=== PATIENT | male | born 1990 | race Caucasian/White ===

== ENCOUNTER → 2024-06-28 | Outpatient (CLI) | payer OTHER ==
[~2024-06-28] MED LIST: BARIUM SULFATE 700 MG TABLET (E-Z-DISK) As Ordered ONE; E-Z-PAQUE 96% w/w SUSP 176GM BTL As Ordered ONE; VARIBAR NECTAR 40% w/v 240ML SUSP BTL As Ordered ONE; VARIBAR PUDDING 40% w/v 230ML TUBE As Ordered ONE
== END ==
LOC: M RAD 12:27
PROVIDERS: ATTEND Internal Medicine
DX: R13.19 Other dysphagia (principal)

== ENCOUNTER 2024-11-22 09:24 | Inpatient (IN) | payer OTHER ==
[~2024-11-22] VITALS: Ht 180.3 cm; Wt 95.0 kg
[2024-11-22] MEDS: PANTOPRAZOLE 40MG TAB PO SCH (09:00)
[2024-11-22 10:06] LABS: HEMATOCRIT 43.6 % (42.0-52.0); HEMOGLOBIN 14.7 g/dl (13.5-17.5); MEAN CORPUSCULAR HEMOGLOBIN 30.9 pg (27.0-33.0); MEAN CORPUSCULAR HGB CONC 33.7 g/dl (32.0-36.5); MEAN CORPUSCULAR VOLUME 91.8 fl (80.0-96.0); PLATELET COUNT, AUTOMATED 270 10^3/uL (150-450); RED BLOOD COUNT 4.75 10^6/uL (4.30-6.10); WHITE BLOOD COUNT 10.8 10^3/uL (4.0-10.0)
[2024-11-22 10:41] LABS: ETHYL ALCOHOL (ETHANOL) 0.005 % (0.000-0.010)
[2024-11-22 10:42] LABS: ALKALINE PHOSPHATASE 74 U/L (40-129); ALT/SGPT 48 U/L (7.0-40); AST/SGOT 24 U/L (<34); BILIRUBIN,DIRECT 0.3 MG/DL (<0.4); BLOOD UREA NITROGEN 13 MG/DL (9-23); CALCIUM LEVEL 9.5 MG/DL (8.5-10.1); CARBON DIOXIDE LEVEL 22 MMOL/L (20-31); CHLORIDE LEVEL 104 MMOL/L (98-107); CREATININE FOR GFR 0.98 MG/DL (0.70-1.30); GLOMERULAR FILTRATION RATE > 90.0 (>60); GLUCOSE, FASTING 89 MG/DL (60-100); POTASSIUM SERUM 3.9 MMOL/L (3.5-5.1); SALICYLATE LEVEL < 3.0 MG/DL (<30); SODIUM LEVEL 138 MMOL/L (136-145); TOTAL PROTEIN 6.9 G/DL (5.7-8.2)
[2024-11-22 10:44] LABS: THYROID STIMULATING HORMONE 1.178 uIU/ML (0.55-4.78)
[2024-11-22 10:48] LABS: AMPHETAMINES LEVEL URINE NEGATIVE (NEGATIVE); BARBITURATES URINE NEGATIVE (NEGATIVE); BENZODIAZEPINES URINE NEGATIVE (NEGATIVE); COCAINE METABOLITE URINE NEGATIVE (NEGATIVE); METHADONE URINE NEGATIVE (NEGATIVE); OPIATES URINE NEGATIVE (NEGATIVE)
[2024-11-22 10:49] LABS: CANNABINOIDS URINE NEGATIVE (NEGATIVE); PHENCYCLIDINE URINE NEGATIVE (NEGATIVE)
[2024-11-22] MEDS ORDERED: EPIN0.3I11 INJ (13:43)
[2024-11-22] MEDS ORDERED: PRED10TA2 PO (13:43)
[2024-11-22] MEDS ORDERED: ROZE8TAB16 PO (13:43)
[2024-11-22] MEDS ORDERED: PANT40TA29 PO (13:43)
[2024-11-22] MEDS ORDERED: LATU20TA PO (13:43)
[2024-11-22] MEDS ORDERED: HOME MED LIST COMPLETE! XX SCH (13:45)
[2024-11-22] MEDS ORDERED: MOM 30ML SUSPENSION UDC PO PRN (13:50)
[2024-11-22] MEDS ORDERED: ACETAMINOPHEN 325 MG TAB PO PRN (13:50)
[2024-11-22] MEDS ORDERED: LORazepam 1 MG TAB PO PRN (13:50)
[2024-11-22] MEDS ORDERED: diphenhydrAMINE 25MG CAP PO PRN (13:50)
[2024-11-22] MEDS ORDERED: MAALOX 30 ML SUSP *UDC PO PRN (13:50)
[2024-11-22] MEDS: NICOTINE 14 MG/24 HR TRANSDERMAL TD SCH (14:06)
[2024-11-22 15:39] VITALS: BP 118/63; TEMP 98.2; O2SAT 96
[2024-11-22] MEDS ORDERED: LORazepam 2 MG TAB PO PRN (18:00)
[2024-11-22 18:18] VITALS: BP 132/61
[2024-11-22] MEDS: MULTIVITAMINS/MINERALS THERAP 1 TAB PO SCH (18:33)
[2024-11-22] MEDS: FOLIC ACID 1MG TAB PO SCH (18:33)
[2024-11-22] MEDS: THIAMINE 100 MG TAB PO SCH (19:13)
[2024-11-22] MEDS: LURASIDONE 20 MG PO SCH (20:29)
[2024-11-22] MEDS: traZODone 50 MG TAB PO PRN (20:29)
[2024-11-22 23:47] VITALS: BP 125/56
[2024-11-23 06:27] VITALS: BP 128/73; TEMP 97; O2SAT 98
[2024-11-23 06:42] VITALS: BP 128/73
[2024-11-23] MEDS: LIDOCAINE 5% (LIDODERM) PATCH TD SCH (15:34)
[2024-11-23] MEDS: valACYclovir HCL 500 MG TAB PO SCH (15:35)
[2024-11-23] MEDS: GABAPENTIN 300 MG CAP PO SCH (15:42)
[2024-11-23] MEDS: CYCLOBENZAPRINE 5MG TABLET PO PRN (15:42)
[2024-11-23 16:00] VITALS: BP 129/66
[2024-11-23] MEDS ORDERED: GABAPENTIN 100 MG CAP PO SCH ×2 (16:00)
[2024-11-23 16:23] VITALS: BP 129/66; TEMP 97.4; O2SAT 100
[2024-11-23] MEDS: LURASIDONE 20 MG PO SCH (18:02)
[2024-11-23] MEDS: PRAZOSIN 1 MG CAP PO SCH (21:06)
[2024-11-24 07:08] VITALS: BP 117/60; TEMP 98; O2SAT 100
[2024-11-24] MEDS: OLANZapine 5 MG TAB PO PRN (13:14)
[2024-11-24 16:10] VITALS: BP 125/59; TEMP 97.2; O2SAT 98
[2024-11-24] MEDS: LURASIDONE HCL 40MG TAB PO SCH (18:17)
[2024-11-25 07:07] VITALS: BP 123/64; TEMP 97.4; O2SAT 98
[2024-11-25 17:52] VITALS: BP 133/70; TEMP 97.2; O2SAT 98
[2024-11-25] MEDS: LURASIDONE 20 MG PO ONE (18:55)
[2024-11-26 06:41] VITALS: BP 112/57; TEMP 97.3; O2SAT 96
[2024-11-26 15:06] VITALS: BP 140/92; TEMP 97.5; O2SAT 98
[2024-11-26] MEDS: LURASIDONE 20 MG PO SCH (18:20)
[2024-11-26 20:20] VITALS: BP 125/60
[2024-11-27 06:34] VITALS: BP 124/61; TEMP 97.5; O2SAT 99
[2024-11-27] MEDS ORDERED: GABA-1172 PO (12:00)
[2024-11-27] MEDS ORDERED: CYCL5TAB4 PO (12:00)
[2024-11-27] MEDS ORDERED: LATU80TA2 PO (12:00)
[2024-11-27] MEDS ORDERED: LIDO5TD TD (12:00)
[2024-11-27] MEDS ORDERED: THERTAB19 PO (12:00)
[2024-11-27] MEDS ORDERED: PRAZ1CAP PO (12:00)
[2024-11-27] MEDS ORDERED: LATU20TA PO (12:00)
[2024-11-27] MEDS ORDERED: TRAZ-252 PO (12:00)
== END 2024-11-27 14:05 | disposition home or self-care (01) | DRG 885 ==
LOC: M ED 09:24 → M ED INP 13:49 → M PSY 15:55
PROVIDERS: ADMIT Internal Medicine; ATTEND Internal Medicine
DX: F31.4 Bipolar disorder, current episode depressed, severe, without psychotic features (principal); B02.29 Other postherpetic nervous system involvement; F41.1 Generalized anxiety disorder; F10.20 Alcohol dependence, uncomplicated; F43.10 Post-traumatic stress disorder, unspecified; Z79.899 Other long term (current) drug therapy; Z88.5 Allergy status to narcotic agent; F17.290 Nicotine dependence, other tobacco product, uncomplicated; M54.59 Other low back pain